=== PATIENT | male | born 1965 | race Caucasian/White ===

== ENCOUNTER 2018-12-09 21:22 | Emergency (ER) | payer OTHER ==
[~2018-12-09] VITALS: Ht 167.6 cm; Wt 86.2 kg
[~2018-12-09 21:22] MED LIST: COZAAR100 MG
[2018-12-09] MEDS ORDERED: TOPROL XL25 M1 (21:29)
[2018-12-09] MEDS ORDERED: CARDURA1 MG (21:29)
[2018-12-09] MEDS ORDERED: NORVASC10 MG (21:29)
[2018-12-09] MEDS ORDERED: PLAVIX75 MG (21:30)
== END 2018-12-10 03:41 | disposition home or self-care (01) ==
LOC: ER 21:22 → CPU-OBS 22:05 → ER 22:05
DX: R07.89 Other chest pain (principal)

== ENCOUNTER 2021-12-03 07:05 | Emergency (ER) | payer OTHER ==
[~2021-12-03] VITALS: Ht 167.6 cm; Wt 95.3 kg
[~2021-12-03 07:05] MED LIST changes: +CARDURA1 MG; +NORVASC10 MG; +PLAVIX75 MG; +TOPROL XL25 M1
[2021-12-03] MEDS ORDERED: CANDESARTAN-HC1 EAC2 PO (07:25)
== END 2021-12-03 17:20 | disposition home or self-care (01) ==
LOC: ER 07:05
DX: R07.89 Other chest pain (principal)